=== PATIENT | male | born 1990 | race Caucasian/White ===

== ENCOUNTER 2020-11-13 02:44 | Emergency (ER) | payer OTHER ==
[2020-11-13 02:59] VITALS: BP 136/81; PULSE 107; RESP 20; TEMP 97.9
--- NOTE | 2020-11-13 03:03 | ED ---
Lower Extremity Injury HPI - General Chief Complaint: Extremity Injury, Lower Stated Complaint: RT foot injury Time Seen by Provider: 11/13/20 02:48 Source: patient, family Mode of arrival: ambulatory Limitations: no limitations - Related Data Allergies Allergy/AdvReac Type Severity Reaction Status Date / Time erythromycin base Allergy Unknown Verified 11/13/20 02:59 Childhood loratadine [From Claritin] Allergy Dyspnea Verified 11/13/20 02:59 Review of Systems ROS Statement: Those systems with pertinent positive or pertinent negative responses have been documented in the HPI. ROS Other: All systems not noted in ROS Statement are negative. Past Medical History Past Medical History: No Reported History History of Any Multi-Drug Resistant Organisms: None Reported Past Surgical History: No Surgical Hx Reported Past Psychological History: No Psychological Hx Reported Smoking Status: Current every day smoker Past Alcohol Use History: Daily Past Drug Use History: Marijuana General Exam Limitations: no limitations Course Vital Signs 11/13/20 02:55 Temperature 97.9 F Pulse Rate 107 H Respiratory 20 Rate Blood Pressure 136/81 O2 Sat by Pulse 97 Oximetry Disposition Clinical Impression: Contusion of right foot Disposition: HOME SELF-CARE Condition: Good Instructions (If sedation given, give patient instructions): Foot Contusion (ED) Is patient prescribed a controlled substance at d/c from ED?: No Referrals: None,Stated [Primary Care Provider] - 1-2 days
--- NOTE | 2020-11-13 03:26 | XR ---
EXAM: XR Right Foot Complete, 3 or More Views CLINICAL HISTORY: ITS.[email or web address] XR Reason: fall TECHNIQUE: Frontal, lateral and oblique views of the right foot. COMPARISON: No relevant prior studies available. FINDINGS: Bones/joints: No acute fracture. No dislocation. Soft tissues: Unremarkable. No radiopaque foreign body. IMPRESSION: No acute osseous abnormalities.
--- NOTE | 2020-11-13 03:26 | XR ---
EXAM: XR Right Ankle Complete, 3 or More Views CLINICAL HISTORY: ITS.[email or web address] XR Reason: fall TECHNIQUE: Frontal, lateral and oblique views of the right ankle. COMPARISON: No relevant prior studies available. FINDINGS: Bones/joints: No acute fracture. No dislocation. Soft tissues: Unremarkable. IMPRESSION: No acute osseous abnormalities.
== END 2020-11-13 04:00 | disposition home or self-care (01) ==
LOC: EC 02:44
DX: S90.31XA Contusion of right foot, initial encounter (principal); F17.200 Nicotine dependence, unspecified, uncomplicated; W01.0XXA Fall on same level from slipping, tripping and stumbling without subsequent striking against object, initial encounter
CPT/HCPCS: 99283

== ENCOUNTER → 2024-02-01 | Outpatient (CLI) | payer OTHER | END | disposition home or self-care (01) | LOC: LABPRL 08:04 | PROVIDERS: ATTEND Family Medicine | CPT/HCPCS: 80053; 80061; 82306; 84439; 84443; 84550; 85025 ==